=== PATIENT | male | born 1995 | race Caucasian/White ===

== ENCOUNTER 2022-08-07 21:27 | Emergency (ER) | payer BC ==
[~2022-08-07] VITALS: Ht 170.2 cm; Wt 108.9 kg
[2022-08-07 21:41] VITALS: BP_SYST 123
--- NOTE | 2022-08-07 22:00 | NUR ---
Pt brought by self, A&Ox4, pt presents to ER with headache, nausea, shivering and facial rash , skin pink and warm, cap refill <3, will cont to monitor.
--- NOTE | 2022-08-07 22:30 | NUR ---
[facility] smith in [facility] - 08/07/22 at 2303 by SDEDAFJ IVANNA
--- NOTE | 2022-08-07 23:12 | NUR ---
Patient to ER bed 01 to gown for evaluation. Side rails up. Report given to JOSE RAMOS .
[2022-08-07] MEDS ORDERED: NACL 0.9% 1,000 ML IV ONE (23:30)
[2022-08-07] MEDS ORDERED: METOCLOPRAMIDE HCL 10 MG/2 ML VIAL IVP ONE (23:30)
[2022-08-07] MEDS ORDERED: KETOROLAC TROMETHAMINE 30 MG VIAL IVP ONE (23:30)
--- NOTE | 2022-08-07 23:52 | NUR ---
# 22 gauge angiocath placed to R HAND. Use of asceptic technique. Opsite placed over site. Blood return noted. Flushed with 10 cc of normal saline. No evidence of infiltration noted. Patient tolerated well.
[2022-08-08 00:43] LABS: BASOPHILS % (AUTO) 0.2 % (0.0-2.0); HEMATOCRIT 42.5 % (36-54); HEMOGLOBIN 14.6 g/dL (14.0-18.0); LYMPHOCYTES # (AUTO) 0.6 K/uL (1.0-5.5); LYMPHOCYTES % (AUTO) 8.7 % (20.5-51.5); MEAN CORPUSCULAR HEMOGLOBIN 30 pg (27-31); MEAN CORPUSCULAR HGB CONC 34 % (32-36); MEAN CORPUSCULAR VOLUME 87 fL (79.0-98.0); MONOCYTES # (AUTO) 0.4 K/uL (0.0-1.0); MONOCYTES % (AUTO) 6.7 % (1.7-9.3); NEUTROPHILS # (AUTO) 5.6 K/uL (1.8-7.7); NEUTROPHILS % (AUTO) 84.4 % (40.0-70.0); PLATELET COUNT (AUTO) 197 K/uL (130-430); RED BLOOD CELL COUNT(AUTO) 4.87 MIL/uL (4.2-6.2); RED CELL DISTRIBUTION WIDTH 13.3 % (9.0-15.0); WHITE BLOOD COUNT (AUTO) 6.6 K/uL (4.8-10.8)
[2022-08-08 00:53] LABS: CALCIUM 8.3 mg/dL (8.4-11.0); CREATININE 0.98 mg/dL (0.55-1.30)
[2022-08-08 01:00] LABS: ALBUMIN 3.2 g/dL (3.4-4.8); TOTAL BILIRUBIN 0.6 mg/dL (0.0-1.0)
--- NOTE | 2022-08-08 01:20 | NUR ---
CRITICAL LAB VALUE: POTASSIUM 2.7 Reported to MD Martino; to see pt.
--- NOTE | 2022-08-08 01:28 | NUR ---
MD Martino at bedside discussing results/POC with pt.
[2022-08-08] MEDS ORDERED: KCL 20 mEq in 100 mL (PREMIX) 100 ML IV ONE (01:30)
[2022-08-08] MEDS ORDERED: POTASSIUM CHLORIDE 20 MEQ TAB.PRT.SR PO ONE (01:30)
[2022-08-08] MEDS ORDERED: NACL 0.9% 1,000 ML IV ONE (01:30)
[2022-08-08] MEDS ORDERED: PHE25 PO (03:28)
[2022-08-08] MEDS ORDERED: NAPR-686 PO (03:28)
[2022-08-08] MEDS ORDERED: POTA-88 PO (03:28)
[2022-08-08] MEDS ORDERED: MAGN200T9 PO ×2 (04:55)
[2022-08-08] MEDS ORDERED: MAGN400T10 PO (04:55)
--- NOTE | 2022-08-08 05:02 | NUR ---
Patient given written and verbal discharge instructions and verbalizes understanding. ER MD Slade discussed with patient the results and treatment provided. Patient in stable condition. ID arm band removed. IV catheter removed intact and dressing applied, no active bleeding. Rx sent to preferred pharmacy. Patient educated on pain management and to follow up with PMD. Opportunity for questions provided and answered. Medication side effect fact sheet provided.
[2022-08-08 05:06] VITALS: BP_SYST 104
== END 2022-08-08 05:06 | disposition home or self-care (01) ==
LOC: SED 21:27
DX: B34.9 Viral infection, unspecified (principal); R51.9 Headache, unspecified; E86.0 Dehydration; E87.6 Hypokalemia; E83.42 Hypomagnesemia; R11.2 Nausea with vomiting, unspecified; R50.9 Fever, unspecified; Z88.0 Allergy status to penicillin; Z79.899 Other long term (current) drug therapy; Z20.822 Contact with and (suspected) exposure to COVID-19
CPT/HCPCS: 99291; 96375; 96361; 87426; 80053; 83735; 85025; 36415; 87804 ×2; 96365; 96366; J1885; J2765; J7030; J3480